=== PATIENT | male | born 2000 | race Caucasian/White ===

== ENCOUNTER 2020-09-27 12:54 | Emergency (ER) | payer OTHER ==
[~2020-09-27] VITALS: Ht 177.8 cm; Wt 80.9 kg
--- NOTE | 2020-09-27 14:21 | REP ---
INDICATION: pelvic mass? COMPARISON: None. TECHNIQUE: Realtime grayscale and color evaluation using linear high-frequency transducer. FINDINGS: Limited directed ultrasound examination of the right groin at the point of maximal tenderness demonstrates reducible fat containing inguinal hernia. Defect at rest measures 0.9-1.1 cm and on Valsalva measures 1.5 cm. IMPRESSION: Reducible fat containing inguinal hernia. <Electronically signed by Nolan Bae > 09/27/20 [id number]
[2020-09-27 15:03] VITALS: BP 117/71
== END 2020-09-27 15:08 | disposition home or self-care (01) ==
LOC: M ED 12:54
DX: K40.90 Unilateral inguinal hernia, without obstruction or gangrene, not specified as recurrent (principal); F17.210 Nicotine dependence, cigarettes, uncomplicated